=== PATIENT | female | born 2000 | race Two or more races ===

== ENCOUNTER 2024-10-20 09:08 | Outpatient (AMB) | payer MEDICAID, SELFPAY ==
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
[2024-10-20 09:18] VITALS: BP 90/62; PULSE 78; O2SAT 98
--- OUTSIDE RECORDS SUMMARY | 2024-10-20 09:41 | XMS_ITS | Clinical Summary ---
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 Role Phone Unavailable Primary Care Provider Unavailabl e Social History Tobacco Use Types Packs/Day Years Used Date Smoking Tobacco: Never Assessed Comments Unknown Sex and Gender Information Value Date Recorded Sex Assigned at Not on file Legal Sex Female 7:46 AM EST Gender Identity Not on file Sexual Orientation Not on file Plan of Treatment Health Maintenance Due Date Last Done Comments HPV Vaccines (1 - 3-dose series) 2013 DTaP,Tdap,and Td Vaccines (1 - Tdap) 2017 Hepatitis B Vaccines (1 of 3 - 19+ 3-dose series) 2017 Cervical Cancer Screening: P ap Smear 09/05/2019 COVID-19 Vaccine ( - 2023-2 5 season) 2023 HIV Screening 04/06/2024 Social Influencers of Health Screening 04/06/2024 Influenza Vaccine (Season Ended) 2024 Depression Screening 03/17/2025 03/17/2024 Hepatitis C Screening Completed 08/08/2023 HIB Vaccines Aged Out No longer eligi ble based on patient's age to complete this topic Hepatitis A Vaccines Aged Out No long er eligible based on patient's age to complete this topic IPV Vaccines Aged Out No longer eligi ble based on patient's age to complete this topic MMR Vaccines Aged Out No longer eligi ble based on patient's age to complete this topic Meningococcal ACWY Vaccine Aged Out N o longer eligible based on patient's age to complete this topic Meningococcal B Vaccine Aged Out No l onger eligible based on patient's age to complete this topic Pneumococcal Vaccine: Pediat rics (0 to 5 Years) and At-Risk Patients (6 to 64 Years) Aged Out No longer eligi ble based on patient's age to complete this topic RSV Immunization Patients Un jv 20 months Aged Out No longer eligible b ased on patient's age to complete this topic Varicella Vaccines Aged Out No longer eligible based on patient's age to complete this topic
== END 2024-10-20 11:06 | disposition home or self-care (01) ==
PROVIDERS: Visit Provider Nurse Practitioner Family
DX: R51.0 Headache with orthostatic component, not elsewhere classified (principal); R51.9 Headache, unspecified; M54.2 Cervicalgia; M54.89 Other dorsalgia; G89.29 Other chronic pain
CPT/HCPCS: 99204

== ENCOUNTER → 2024-10-20 09:08 | Outpatient (BNVA) | payer MEDICAID, SELFPAY | PROVIDERS: Visit Provider Nurse Practitioner Family | DX: R51.0 Headache with orthostatic component, not elsewhere classified (principal); R51.9 Headache, unspecified; M54.2 Cervicalgia; M54.89 Other dorsalgia; G89.29 Other chronic pain | CPT/HCPCS: 99212 ==

== ENCOUNTER 2024-12-15 15:53 | Outpatient (AMB) | payer MEDICAID, SELFPAY ==
[2024-12-15 15:55] VITALS: BP 108/64; PULSE 77; O2SAT 98; BMI 22.7
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
--- OUTSIDE RECORDS SUMMARY | 2024-12-15 17:24 | XMS_ITS | Clinical Summary ---
Author Organization [facility] Address [address] [place] [address] Phone Care Team Providers Care Brusher Hand Name Role Phone Physician, No Pcp Primary Care Provider Unavaila ble Encounters Date Type Department Care Team Description 10/20/2024 11:28 AM EDT - 10/20/2024 11:59 PM EDT Hospital Encounter [facility] Xray [address] [place] [address] Cervicalgia Discharge Disposition: Home or Self Care from Last 3 Months Social History Tobacco Use Types Packs/Day Years [...] 04/06/2024 Social Influencers of Health Screening 04/06/2024 Depression Screening 04/29/2024 Influenza Vaccine (#1) 2024 Hepatitis C Screening Completed 08/08/2023 HIB Vaccines [...] 5 Years) and At-Risk Patients (6 to 49 Years) Aged Out No longer eligi ble based on patient's age to complete this topic RSV Immunization Patients Un jv 20 months Aged Out No longer eligible b ased on patient's age to complete this topic Varicella Vaccines Aged Out No longer eligible based on patient's age to complete this topic Procedures Procedure Name Priority Date/Time Associated Diagnosis Comments XR CERVICAL SPINE 6+ VIEWS Routine 10/20/2024 11:49 AM EDT Cervicalgia from Last 3 Months Results * XR Cervical Spine 6+ Views (10/20/2024 11:49 AM EDT) Anatomical Region Laterality Modality Spine, C-spine Radiographic Kiera ging 10/20/2024 11:5 2 AM EDT Impressions 10/20/2024 11:56 AM EDT Reversal of the cervical lordosis consistent with muscle spasm. Alignment is otherwise anatomic. There is no abnormal relative bony motion with flexion and extension. Range of motion in extension is limited. Otherwise, normal examination. Code 07785 -------- FINAL REPORT -------- Dictated By: Zachariah Cody Dictated Date: 10/20/2024 11:52 ET Assigned Physician: Zachariah Cody Reviewed and Electronically Signed By: Zachariah Cody Signed Date: 10/20/2024 11:56 ET Workstation ID: [id number] Transcribed By: Self Edit Transcribed Date: 10/20/2024 11:54 ET Narrative 10/20/2024 11:56 AM EDT HISTORY: The patient is a 24-year-old female with neck pain, nontraumatic. FINDINGS: Lateral radiographs of the cervical spine in neutral, flexion, and extension positions, along with AP, open-mouth, and exaggerated Goodman, and right and left oblique views, are obtained. The study demonstrates reversal of the cervical lordosis consistent with muscle spasm. The alignment of the bony structures there is otherwise anatomic. There is no abnormal relative bony motion with flexion and extension. Range of motion in extension is limited. No fracture is seen. The disc spaces are well-maintained. There is no evidence of bony encroachment on the neural foramina. There is no prevertebral soft tissue swelling. Procedure Note Zachariah Cody MD - 10/20/2024 HISTORY: The patient is a 24-year-old female with neck pain,nontraumatic. FINDINGS: Lateral radiographs of the cervical spine in neutral, flexion,and extension positions, along with AP, open-mouth, and exaggeratedWaters, and right and left oblique views, are obtained. The studydemonstrates reversal of the cervical lordosis consistent with musclespasm. The alignment of the bony structures there is otherwise anatomic.There is no abnormal relative bony motion with flexion and extension.Range of motion in extension is limited. No fracture is seen. The discspaces are well-maintained. There is no evidence of bony encroachment onthe neural foramina. There is no prevertebral soft tissue swelling. IMPRESSION: Reversal of the cervical lordosis consistent with muscle spasm. Alignmentis otherwise anatomic. There is no abnormal relative bony motion withflexion and extension. Range of motion in extension is limited. Otherwise,normal examination. Code 44822 -------- FINAL REPORT -------- Dictated By: Zachariah Cody Dictated Date: 10/20/2024 11:52 ET Assigned Physician: Zachariah Cody Reviewed and Electronically Signed By: Zachariah Cody Signed Date: 10/20/2024 11:56 ET Workstation ID: [id number] Transcribed By: Self Edit Transcribed Date: 10/20/2024 11:54 ET Emmy MARCELOP IMG XR PROCEDURES Final R esult from Last 3 Months Insurance MEDICAID - [place] Care Teams Brusher Hand Relationship Specialty Start Date End Date Physician, No Pcp PCP - General 10/20/24
--- OUTSIDE RECORDS SUMMARY | 2024-12-15 17:24 | XMS_ITS | Clinical Summary ---
Demographics Address [address] [place] [address] Home Phone Preferred Language Unknown Marital Status Unknown Buddhism Affiliation Unknown Race Unknown Ethnic Group Unknown Author Organization [employer] Address [address] [place] [address] Care Team Providers Care Foam Molder Name Role Phone Unavailable Primary Care Provider Unavailabl e Encounters Date Type Department Care Team Description 11/17/2024 Population Health Risk Score [facility] Care [facility] ([facility]) Department [address] [facility] [address] [place] [id number] Provider, Population Health Generic from Last 3 Months Social History Tobacco Use Types Packs/Day Years Used Date Smoking Tobacco: Never Assessed Comments Unknown Sex and Gender Information Value Date Recorded Sex Assigned at Not on file Legal Sex Female 9:23 PM EDT Gender Identity Not on file Sexual Orientation Not on file Plan of Treatment Health Maintenance Due Date Last Done Comments Depression Screening 1998 SDOH Screening 1998 Disability Screening 1998 Alcohol/Substance Use Screening 2010 Tobacco Screening 2010 Family Planning (PISQ) 2013 HPV Vaccines (1 - 3-dose series) 2013 Hepatitis C Screening 2016 DTaP/Tdap/Td Vaccines (1 - Tdap) 2017 Hepatitis B Vaccines (1 of 3 - 19+ 3-dose series) 2017 Pap Smear 09/05/2019 COVID-19 Vaccine ( - 2023-2 5 season) 2023 Influenza Vaccine (#1) 2024 Zoster Vaccines (1 of 2) 2048 RSV Patients and Patients Aged 60 years or older (1 - 1-dose 75+ series) 2073 HIV Screening Completed 08/08/2023, 08/08/2023 HIB Vaccines Aged Out No longer [...] patient's age to complete this topic Meningococcal Vaccine Aged Out No mouna jorge eligible based on patient's age to complete this topic Pneumococcal Vaccine: Pediatrics (0 to 5 Years) and At-Risk Patients (6 to 49) Years Aged Out No longer eligible b ased on patient's age to complete this topic RSV under 20 months Aged Out No longe r eligible based on patient's age to complete this topic Rotavirus Vaccines Aged Out No longer eligible based on patient's age to complete this topic
--- OUTSIDE RECORDS SUMMARY | 2024-12-15 17:24 | XMS_ITS | Clinical Summary ---
Author Organization [facility] Address [address] [place] [address] Care Team Providers Care Cable Repairer Name Role Phone Luca Smith-David Primary Care Provider [phone] Source Comments PLEASE NOTE, if this patient is a minor, it may be UNLAWFUL to discuss sensitive information that is contained in these records (such as FAMILY PLANNING, MENTAL HEALTH or SUBSTANCE ABUSE) with the minor patient's parent or other person without the patient's specific authorization.[facility] Allergies No known active allergies Medications acetaminophen (TYLENOL) 500 mg tabletIndications:H eadaches Take 1 Tablet by mouth every 6 (six) hours as needed for pain 50 Tablet 1 024 Active omeprazole (PRILOSEC) [address] capsule Take 1 Capsule by mouth once daily as needed for other reason (heartburn, nausea). 90 Capsule 025 Active bismuth subsalicylate (PEPTO BISMOL) [address] 1 Tablet into mouth, chew and swallow 4 (four) times daily for 14 days. 56 Tablet 025 2024 metroNIDAZOLE (FLAGYL) 250 mg tabletIndications:H . pylori gastrointestinal tract infection Take 1 Tablet by mouth 4 (four) times daily for 14 days Indications: H. pylori gastrointestinal tract infection. 56 Tablet 025 2024 tetracycline 500 mg capsule Take 1 Capsule by mouth 4 (four) times daily before meals and nightly for 14 days. 56 Capsule 025 2024 Active Problems Problem Noted Date Diagnosed Date IUD (intrauterine device) in place 09/22/2024 Overview (09/22/2024): [facility]agu[facility] placed by [facility] on 09/01/24 H/O traumatic brain injury 08/08/2023 Lightheadedness 08/08/2023 Headaches 08/08/2023 Encounters Date Type Department Care Team Description 12/04/2024 9:00 AM EDT Office Visit [address] [phone] Isela Richard DDS 11/30/2024 Results Follow-Up [address] [address] Ren Almeida MD 11/28/2024 11:40 AM EDT Office Visit [address] [address] Ren Almeida MD 09/24/2024 Results Follow-Up [address] [address] Carina Lester MD 09/22/2024 1:00 PM EDT Office Visit [address] [phone] Carina Lester MD [place], [place] from Last 3 Months Social History Tobacco Use Types Packs/Day Years Used Date Smoking Tobacco: Former Cigarettes Smokeless Tobacco: Never Tobacco Cessation:Counseling Given: Not Answered Alcohol Use Standard Drinks/Week Comments Never 0 (1 standard drink = 0.6 oz pur e alcohol) Social Connections Answer Date Recorded Connectedness 1 08/08/2023 Financial Resource Strain Answer Date R ecorded Financial Resource Strain 1 2023 Stress Answer Date Recorded Stress 1 08/08/2023 Physical Activity Answer Date Recorded Physical Activity 0 06/18/2023 Food Insecurity Answer Date Recorded Food 1 08/08/2023 Transportation Needs Answer Date Record ed Transportation 1 08/08/2023 Housing Stability Answer Date Recorded Housing 1 08/08/2023 Safety and Environment Answer Date Buddy rded Safety 1 08/08/2023 Utilities Answer Date Recorded Utilities 1 08/08/2023 Employment Answer Date Recorded Stress 0 08/08/2023 Comments No Sex and Gender Information Value Date Recorded Sex Assigned at Female 05/27/2023 8:19 AM PST Legal Sex Female 8:18 AM PST Gender Identity Female 05/27/2023 8:19 AM PST Sexual Orientation Straight 05/27/2023 8: 19 AM PST Last Filed Vital Signs Vital Sign Reading Time Taken Comments Blood Pressure 105/78 11/28/2024 11:12 AM EDT Pulse 65 11/28/2024 11:12 AM EDT Temperature 37.2 C (98.9 F) 11/28/2024 11:12 AM EDT Respiratory Rate 18 11/28/2024 11:12 AM EDT Oxygen Saturation 98% 09/22/2024 1:19 PM EDT Inhaled Oxygen Concentration - - Weight 56.7 kg (125 lb) 11/28/2024 11:12 AM EDT Height 157.5 cm (5' 2 ) 03/31/2024 2:42 PM EST Body Mass Index 22.86 03/31/2024 2:42 PM EST Plan of Treatment Upcoming Encounters Date Type Department Care Team (Late st Contact Info) Description 01/08/2025 10:20 AM EDT Office Visit [facility] [address] [place] [phone] Isela Richard, DDS [address] [place] [address] Health Maintenance Due Date Last Done Comments Dental Prophy 1998 HPV Screening 1998 Hepatitis B Screening 1998 Imm-HPV (1 - 3-dose series) 2013 Imm-DTaP/Tdap/Td (1 - Tdap) 2017 Imm-Hepatitis B (1 of 3 - 19 + 3-dose series) 2017 [id number] (2023- season) 2023 Alcohol and Drug Screen 04/29/2024 02/28/20 24, 10/01/2023, 08/08/2023 Depression Monitoring 06/17/2024 03/17/2024 , 02/28/2024, 10/01/2023, Additional history exists Relationship Safety Screening/Counseling 08/07/2024 08/08/2023 Imm-Influenza (#1) 2024 Dental BW 03/12/2025 03/10/2024 Dental Examination 03/12/2025 03/10/2024 Dental Perio Charting 03/12/2025 03/10/2024 Anxiety Screening 03/17/2025 03/17/2024 Annual Wellness (Adult): Indicated (All Coverage) 09/22/2025 09/22/2024 Tobacco Screening 11/30/2025 11/30/2024 Cervical Cancer Screening 09/23/2027 Pap + HPV 09/23/2027 09/22/2024 Pap Smear 09/23/2027 09/22/2024 Hypertension Screening (#1) 11/28/2027 Dental FMX/Pano 03/12/2029 03/10/2024 HIV Screening Completed 08/08/2023 Hepatitis C Screening Completed 08/08/2023 Cervical Ablation/Cold-Knife Conization Discontinued Cervical Cryotherapy Discontinued Colposcopy Discontinued Endometrial Biopsy Discontinued Excision/Leep Discontinued HPV Genotyping Discontinued Vaginal Pap Discontinued Vulvoscopy Discontinued Procedures Procedure Name Priority Date/Time Associated Diagnosis Comments H PYLORI UREA BREATH TEST Routine 11/28/2024 11:57 AM EDT History of Helicobacter pylori infection REFERRAL SCANNED DOCUMENT 10/20/2024 3:00 AM EDT THINPREP IMAGING PAP, HPV MRNA E6/E7 RFLEX HPV 16,18/45 CT/NG Routine 09/22/2024 1:41 PM EDT Encounter for Papanicolaou smear of vagina as part of routine gynecological examination Encounter for screening for human papillomavirus (HPV) SURESWAB ADVANCED VAGINITIS PLUS, TMA Routine 09/22/2024 1:41 PM EDT Screening for STDs (sexually transmitted diseases) Full INTRAORAL - COMP SERIES OF RADIOGRAPHIC IMAGES Routine 03/10/2024 9:00 AM EST Encounter for dental examination 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 Caries Full COMP ORAL EVALUATION - NEW/ESTABLISHED PATIENT Routine 03/10/2024 9:00 AM EST Encounter for dental examination Caries HIV 1/2 AG & AB W/RFLX (4TH GEN) Routine 08/08/2023 12:04 PM EDT Routine screening for STI (sexually transmitted infection) HEPATITIS C AB W/RFLX HCV RNA, QT, RT PCR Routine 08/08/2023 12:04 PM EDT Routine screening for STI (sexually transmitted infection) from Last 3 Months or Most Recently Relevant to Health Maintenance Results * (ABNORMAL) H PYLORI UREA BREATH TEST Breath BREATH Routine (11/28/2024 11:57 AM EDT) RESULT DETECTED( A) NOT DETECTED 11/30/2024 8:06 AM EDT [facility] BREATH (Breath) 11/28/2024 1 1:57 AM EDT 11/30/2024 7:59 AM EDT Narrative [facility] - 11/30/2024 8:07 AM EDT . Antimicrobials, proton pump inhibitors, and bismuth preparations are known to suppress H. pylori, and ingestion of these prior to H. pylori diagnostic testing may lead to false negative results. If clinically indicated, the test may be repeated on a new specimen obtained two weeks after discontinuing treatment. However, a positive result is still clinically valid. Ren Almeida MD LAB - MICROBIOLOGY AMBULATOR Y Final Result [facility] [address] [address], [facility] [address] [address] * REFERRAL SCANNED DOCUMENT (10/20/2024 3:00 AM EDT) 10/20/2024 3:00 AM EDT [facility] Provider Default SCAN REFERRAL Final Resu lt * SURESWAB ADVANCED VAGINITIS PLUS, TMA Vaginal Vaginal Routine (09/22/2024 1:41 PM EDT) SURESWAB(R) ADV BACTERIAL VAGINOSIS (BV), TMA NEGATIVE NEGATIVE [facility] LISSETH SPECIES NOT DETECTED NOT DETECTED [facility] LISSETH GLABRATA NOT DETECTED NOT DETECTED [facility] COMMENT [facility] TRICHOMONAS VAGINALIS (TV), TMA NOT DETECTED NOT DETECTED [facility] CHLAMYDIA TRACHOMATIS RNA, TMA NOT DETECTED NOT DETECTED [facility] NEISSERIA GONORRHOEAE RNA, TMA NOT DETECTED NOT DETECTED [facility] COMMENT [facility] Vaginal Vaginal structure / Unknown 09/22/2024 1:41 PM EDT 09/23/2024 3:02 AM EDT Narrative [facility] - 09/23/2024 3:38 PM EDT Lisseth species C. albicans, C. tropicalis, C. parapsilosis, and/or C. dubliniensis can be detected, but not differentiated, in the Lisseth spp. result. For additional information, please refer to https://education.[employer]/faq/PCS660 (This link is being provided for information/ educational purposes only.) us Carina Lester MD LAB - MICROBIOLOGY AMBULATORY Fi nal Result [facility] [address] [place] [id number], [facility] [address] [place] [phone] * THINPREP IMAGING PAP, HPV MRNA E6/E7 RFLEX HPV 16,18/45 CT/NG Cervix- Endocervix Swab Routine (09/22/2024 1:41 PM EDT) CHLAMYDIA TRACHOMATIS RNA, TMA NOT DETECTED NOT DETECTED [facility] NEISSERIA GONORRHOEAE RNA, TMA NOT DETECTED NOT DETECTED [facility] COMMENT [facility] CLINICAL INFORMATION See Note [facility] Comment:None given LMP See Note [facility] Comment:03/15/2024 PREV. PAP See Note [facility] Comment:NONE GIVEN PREV. BX See Note [facility] Comment:NONE GIVEN SOURCE See Note [facility] Comment:Cervix, Endocervix STATEMENT OF ADEQUACY See Note [facility] Comment: Satisfactory for evaluation. Endocervical/transformation zone component present. INTERPRETATION/RESU LT See Note [facility] Comment: Cytology Results: Negative for intraepithelial lesion or malignancy. COMMENT See Note [facility] Comment: This Pap test has been evaluated with computer assisted technology. HOUSE RN See Note [facility] Comment: KR, CT(ASCP) CT screening location: [place] [address] COMMENT [facility] HPV MRNA E6/E7 Not Detected Not Detected [facility] Comment: Methodology: Adjunct Instructor-Mediated Amplification This assay detects E6/E7 viral messenger RNA (mRNA) from 14 high-risk HPV types (16,18,31,33,35,39,45,51,52,56,58,59,66,68). Cervical sources are required for HPV testing. If a vaginal source from a patient who has had a total hysterectomy with removal of cervix was submitted, please contact the testing laboratory for alternative testing options. For additional information, please refer to http://[email or web address]/faq/SUI180k8 (This link if provided for information/ educational purposes only.) Swab Cervix uteri structure / Unknown 09/22/2024 1:41 PM EDT 09/23/2024 6:36 AM EDT Narrative [facility] - 09/24/2024 3:06 PM EDT EXPLANATORY NOTE: The Pap is a screening test for cervical cancer. It is not a diagnostic test and is subject to false negative and false positive results. It is most reliable when a satisfactory sample, regularly obtained, is submitted with relevant clinical findings and history, and when the Pap result is evaluated along with historic and current clinical information. The analytical performance characteristics of this assay, when used to test SurePath(TM) specimens have been determined by [facility]. The modifications have not been cleared or approved by the FDA. This assay has been validated pursuant to the CLIA regulations and is used for clinical purposes. For additional information, please refer to https://[email or web address]/faq/MCX783 (This link is being provided for information/ educational purposes only.) us Carina Lester MD LAB - PATHOLOGY AND CYTOLOGY AMB ULATORY Final Result [facility] [address] [address], [facility] [address] [address] * HEPATITIS C AB W/RFLX HCV RNA, QT, RT PCR (08/08/2023 12:04 PM EDT) HEPATITIS C ANTIBODY NON-REACT ТАТЬЯНА NON-REACT ТАТЬЯНА [facility] Comment: HCV antibody was non-reactive. There is no laboratory evidence of HCV infection. In most cases, no further action is required. However, if recent HCV exposure is suspected, a test for HCV RNA (test code 20393) is suggested. For additional information please refer to http://[email or web address]/faq/IXJ79u2 (This link is being provided for informational/ educational purposes only.) Blood Blood / Unknown 08/08/2023 1 2:04 PM EDT 08/08/2023 12:04 PM EDT Daina Kc PA-C LAB - BLOOD DRAW Edited Resu lt - Final [facility] [address] [place] [id number], [facility] [address] [place] [phone] * HIV 1/2 AG & AB W/RFLX (4TH GEN) (08/08/2023 12:04 PM EDT) HIV AG/AB, 4TH GEN NON-REAC TIVE NON-REAC TIVE [facility] Comment: HIV-1 antigen and HIV-1/HIV-2 antibodies were not detected. There is no laboratory evidence of HIV infection. PLEASE NOTE: This information has been disclosed to you from records whose confidentiality may be protected by state law. If your state requires such protection, then the state law prohibits you from making any further disclosure of the information without the specific written consent of the person to whom it pertains, or as otherwise permitted by law. A general authorization for the release of medical or other information is NOT sufficient for this purpose. For additional information please refer to http://[email or web address]/faq/JYX277 (This link is being provided for informational/ educational purposes only.) The performance of this assay has not been clinically validated in patients less than 2 years old. Blood Blood / Unknown 08/08/2023 1 2:04 PM EDT 08/08/2023 12:04 PM EDT Daina Kc PA-C LAB - BLOOD DRAW Final Resul t [facility] [address] [address], [facility] [address] [place] [phone] from Last 3 Months or Most Recently Relevant to Health Maintenance Insurance [employer] [address] [employer] Care Teams Cable Repairer Relationship Specialty Start Date End Date Luca Smith FNP-C [address] [place] [address] PCP - General Internal Medicine 03/30/24
== END 2024-12-16 12:19 | disposition home or self-care (01) ==
LOC: HO.HSMS 15:54
PROVIDERS: Visit Provider Nurse Practitioner Family
DX: R51.0 Headache with orthostatic component, not elsewhere classified (principal); R51.9 Headache, unspecified; M54.2 Cervicalgia; M54.89 Other dorsalgia; G89.29 Other chronic pain
CPT/HCPCS: 99214

== ENCOUNTER → 2024-12-15 15:53 | Outpatient (BNVA) | payer MEDICAID, SELFPAY | PROVIDERS: Visit Provider Nurse Practitioner Family | DX: R51.0 Headache with orthostatic component, not elsewhere classified (principal); M54.2 Cervicalgia; M54.89 Other dorsalgia; G89.29 Other chronic pain | CPT/HCPCS: 99212 ==

== ENCOUNTER 2025-04-16 10:09 | Outpatient (AMB) | payer MEDICAID, SELFPAY ==
[2025-04-16 10:12] VITALS: BP 90/60; BMI 22.5
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
--- OUTSIDE RECORDS SUMMARY | 2025-04-16 11:27 | XMS_ITS | Clinical Summary ---
Author Organization [employer] Address [address] [place] [address] Care Team Providers Care Daycare Manager Name Role Phone Unavailable Primary Care Provider [...] series) 2017 Pap Smear 09/05/2019 COVID-19 Vaccine (1 - 2024-2 6 season) 2024 Influenza Vaccine (#1) 2024 Zoster Vaccines (1 of 2) 2048 RSV Patients and Pa tients Aged 60 years or older (1 - 1-dose 75+ series) 2073 HIV Screening Completed 08/08/2023 HIB Vaccines Aged Out [...] to 49) Years Aged Out No longer eligi ble based on patient's age to complete this topic RSV under 20 months Aged Out No longe r eligible based on patient's age to complete this topic Rotavirus Vaccines Aged Out No longer eligible based on patient's age to complete this topic
--- OUTSIDE RECORDS SUMMARY | 2025-04-16 11:27 | XMS_ITS | Clinical Summary ---
Author Organization [facility] Address [address] [place] [address] Phone Care Team Providers Care Spring Former Machine Name Role Phone Physician, No Pcp Primary Care Provider Unavaila ble Social History Tobacco Use Types Packs/Day Years [...] Cervical Cancer Screening: P ap Smear 09/05/2019 HIV Screening 04/06/2024 Social Influencers of Health Screening 04/06/2024 Depression Screening 04/29/2024 COVID-19 Vaccine ( - 2024-2 6 season) 2024 Influenza Vaccine (#1) 2024 RSV Immunization Adult Patie nts (1 - 1-dose 75+ series) 2073 Hepatitis C Screening Completed 08/08/2023 HIB Vaccines [...] on patient's age to complete this topic Insurance MEDICAID - [place] Care Teams Spring Former Machine Relationship Specialty Start Date End Date Physician, No Pcp PCP - General 10/20/24
== END 2025-04-16 10:58 | disposition home or self-care (01) ==
LOC: HO.HSMS 10:10
PROVIDERS: Visit Provider Nurse Practitioner Family
DX: R51.0 Headache with orthostatic component, not elsewhere classified (principal); R51.9 Headache, unspecified; M54.2 Cervicalgia; M54.89 Other dorsalgia; G89.29 Other chronic pain
CPT/HCPCS: 99214

== ENCOUNTER → 2025-04-16 10:09 | Outpatient (BNVA) | payer MEDICAID, SELFPAY | PROVIDERS: Visit Provider Nurse Practitioner Family | DX: R51.0 Headache with orthostatic component, not elsewhere classified (principal); M54.2 Cervicalgia; M54.89 Other dorsalgia; G89.29 Other chronic pain | CPT/HCPCS: 99212 ==